=== PATIENT | male | born 1945 | race Caucasian/White ===

== ENCOUNTER 2020-12-04 22:35 | Emergency (ER) | payer OTHER ==
[~2020-12-04] VITALS: Ht 172.7 cm; Wt 100.6 kg
[2020-12-04 22:38] VITALS: BP 172/90
[2020-12-04 23:52] LABS: BASOPHILS % (AUTO) 0 % (0-1); EOSINOPHILS % (AUTO) 1 % (1-7); LYMPHOCYTES % (AUTO) 9 % (22-44); MEAN CORPUSCULAR HEMOGLOBIN 30.1 pg (27.5-34.5); MEAN CORPUSCULAR HGB CONC 34.2 g/dL (33.2-36.2); MONOCYTES % (AUTO) 5 % (2-9); NEUTROPHILS % (AUTO) 86 % (42-75); PLATELET COUNT 261 x10^3/uL (130-400); RED BLOOD COUNT 4.93 x10^6/uL (4.38-5.82); RED CELL DISTRIBUTION WIDTH 13.7 % (9.4-14.8)
[2020-12-04 23:57] LABS: MD NO
[2020-12-05 00:09] LABS: ALBUMIN 3.4 g/dL (3.4-5.0); ANION GAP 7 mmol/L (5-15); CALCIUM 9.4 mg/dL (8.5-10.1); CHLORIDE 104 mmol/L (98-107)
[2020-12-05 00:13] LABS: ALANINE AMINOTRANSFERASE 16 U/L (12-78); ALKALINE PHOSPHATASE 113 U/L (45-117); CREATININE 0.76 mg/dL (0.7-1.3); TOTAL PROTEIN 7.2 g/dL (6.4-8.2)
--- NOTE | 2020-12-05 00:49 | NUR ---
PT WALKED BACK TO THIS RNS ROOM AT THIS TIME. PT REPORTS COMING INTO ED TONIGHT DUE TO VISITING [facility], GETTING KICKED OUT OF [facility], NOT HAVING ENOUGH GAS TO GET HOME AND THEN PARKING AT A [facility]. PT [facility] DC[facility]D [facility] EARLIER TODAY DUE TO "NOT BEING A RESTING PLACE". PT REPORTS WALKING FROM THERE AND THEN HAVING A [facility] CALL EMS TO BRING HIM IN TO A HOSPITAL FOR NEW ONSET LEG PAIN D/T WALKING. Patient is resting comfortably in bed. Bed in lowest, rails engaged, call light on lap. Vital Signs within normal limits. WCTM.
--- NOTE | 2020-12-05 01:15 | NUR ---
RN AT , PT ASKING RN IF HE COULD HAVE GAS MONEY FOR HIS [address] TO [address]IVE HOME. PT PROCEDES TO ASK RN IF SHE COULD CALL HIS [facility]ARTMENT [facility] TO HAVE THEM CHECK ON HIS CAT AND IF HE COULD JUST HAVE A BED HERE FOR THE NIGHT. RN INFORMED PT WE ARE UNABLE TO ADMIT A PT WITHOUT A MEDICAL EMERGENCY. RN OFFERED PT VARIOUS HOTELS, A TAXI VOUCHER OR HOMELESS SHELTERS FOR THE EVENING SO HE CAN DETERMINE HIS PLAN IN THE MORNING. PT AGGITATED WITH RN STATING "NO IM NOT HOMELESS, I JUST NEED GAS MONEY TO GET HOME".
--- NOTE | 2020-12-05 01:59 | NUR ---
Task rn: Patient given discharge instructions and they have confirmed that they understand the instructions. Patient ambulatory with steady gait using home cane. Pt provided w/ taxi vocher to men's half-way per pt request. Resp even and unlabored,
== END 2020-12-05 02:01 | disposition home or self-care (01) ==
LOC: ED 12-05 01:15
DX: I87.2 Venous insufficiency (chronic) (peripheral) (principal); R60.0 Localized edema; Z76.5 Malingerer [conscious simulation]; F17.200 Nicotine dependence, unspecified, uncomplicated
CPT/HCPCS: 36415; 80053; 85025; 93970; 99284